=== PATIENT | female | born 1960 | race Caucasian/White ===

== ENCOUNTER → 2017-08-21 | Outpatient (CLI) | payer OTHER ==
--- NOTE | 2017-08-21 12:01 | REPMRS ---
Patient History The patient states she had a clinical breast exam in 12/05 Patient is postmenopausal. Family history of prostate cancer in father at age 50 or over and colorectal cancer in maternal aunt at age 50 or over. Digital Woman Screen Mammo: August 21, 2017 - Exam #: [id number] Bilateral CC and MLO view(s) were taken. Technologist: Mirela Cherry, Technologist Prior study comparison: December 11, 2014, digital woman screen mammo performed at [facility]. November 22, 2012, digital woman screen mammo performed at [facility]. December 01, 2010, bilateral bilat screen digital mammo performed at [facility]. FINDINGS: There are scattered fibroglandular densities. There has been no change in the appearance of the mammogram from the prior studies. There is a mild amount of scattered fibroglandular density which is fairly symmetric. There is no interval development of dominant mass, architectural distortion, or clustered microcalcification suggestive of malignancy. ASSESSMENT: BI-RADS/ACR category 1 mammogram. Negative. Recommendation Routine screening mammogram in 1 year (for women over age 40). This mammogram was interpreted with the aid of an FDA-approved computer-aided dectection system. Electronically Signed By: Efrain Hassan MD 08/21/17 1200
== END ==
LOC: M WHC 11:24
PROVIDERS: ATTEND Family Medicine
DX: Z12.31 Encounter for screening mammogram for malignant neoplasm of breast (principal)

== ENCOUNTER → 2019-02-27 | Outpatient (CLI) | payer OTHER ==
--- NOTE | 2019-02-27 16:00 | REPMRS ---
Patient History The patient states she has not had a clinical breast exam in over a year. Patient is postmenopausal. Family history of prostate cancer at age 50 or over in father, colorectal cancer at age 50 or over in maternal aunt. Digital Woman Screen Mammo: February 27, 2019 - Exam #: [id number] Bilateral CC and MLO view(s) were taken. Technologist: Kim Thompson Technologist Prior study comparison: August 21, 2017, digital woman screen mammo performed at [facility]. December 11, 2014, digital woman screen mammo performed at [facility]. November 22, 2012, digital woman screen mammo performed at [facility]. FINDINGS: There are scattered fibroglandular densities. There has been no change in the appearance of the mammogram from the prior studies. There is a mild amount of scattered fibroglandular density which is fairly symmetric. There is no interval development of dominant mass, architectural distortion, or clustered microcalcification suggestive of malignancy. Assessment: BI-RADS/ACR category 1 mammogram. Negative Mammogram. Recommendation Routine screening mammogram of both breasts in 1 year (for women over age 40). This patient's Lifetime Breast Cancer RIsk is estimated at 10.0 %. This mammogram was interpreted with the aid of an FDA-approved computer-aided dectection system. Electronically Signed By: Efrain Hassan MD 02/27/19 1600
== END ==
LOC: M WHC 12:50
PROVIDERS: ATTEND Family Medicine
DX: Z12.31 Encounter for screening mammogram for malignant neoplasm of breast (principal); Z78.0 Asymptomatic menopausal state; Z80.42 Family history of malignant neoplasm of prostate

== ENCOUNTER → 2021-06-03 | Outpatient (CLI) | payer BC ==
--- NOTE | 2021-06-03 16:24 | REPMRS ---
Patient History The patient states she had a clinical breast exam in November 2020. Family history of prostate cancer at age 50 or over in father, colorectal cancer at age 50 or over in maternal aunt. Patient states no breast complaints today. Patient has signed MRS History Sheet. Digital Woman Screen Mammo: June 03, 2021 - Exam #: [id number] Bilateral CC and MLO view(s) were taken. Technologist: Malina Villareal, Technologist Prior study comparison: February 27, 2019, bilateral digital woman screen mammo performed at [facility]. August 21, 2017, digital woman screen mammo performed at [facility]. FINDINGS: There are scattered fibroglandular densities. Screening. Digital screening (2D) mammography was performed bilaterally in the CC and MLO projections. Additionally, breast tomosynthesis (3D mammography) was performed bilaterally in the CC and MLO projections. Todays exam was compared to the prior exam/exams.There are no prior DBT images for comparison. By history, the patient has no complaints of a palpable breast abnormality or other significant breast complaints. The breasts are unchanged in size and shape. There are no liza-soft tissue densities or spiculated masses. There is no internal architectural distortion. Once again, stable benign appearing calcifications are seen.There are no suspicious liza-calcific clusters. Skin thickening or nipple retraction is not present. IMPRESSION: BI-RADS Category 2- Benign Findings. There is no evidence of malignant alteration of the breasts. Followup examination recommended in one year. The Volpara volumetric breast density category is B, there are scattered areas of fibroglandular densities. This mammogram was [facility],an FDA approved computer aided detection system for mammography. The lifetime Tyrer-Cuzick score is 9.4 % Negative x-ray reports should not delay surgical consultation if a dominant or clinically suspicious mass is present. Not all breast cancers can be identified by mammography. Therefore, we recommend that you continue to perform regular breast self-examination and physical examination and then promptly contact your physician of any concerns or changes. Adenosis and dense breasts may obscure an underlying neoplasm. Assessment: BI-RADS/ACR category 2 mammogram. Benign Findings. Recommendation Routine screening mammogram of both breasts in 1 year. Electronically Signed By: Ayden Ferreira DO 06/03/21 [id number]
== END ==
LOC: M WHC 15:00
PROVIDERS: ATTEND Family Medicine
DX: Z12.31 Encounter for screening mammogram for malignant neoplasm of breast (principal)

== ENCOUNTER → 2021-11-17 | Outpatient (CLI) | payer OTHER ==
--- NOTE | 2021-11-17 14:32 | REP ---
INDICATION: M95.0 POST MENOSAUSAL BLEEDING. COMPARISON: None. TECHNIQUE: Transvesical and transvaginal scanning FINDINGS: The uterus measures 8.1 x 4.6 x 5.4 cm. In the posterior uterine body to the left of the midline there is a 5.5 x 4.4 x 4.6 cm size complex appearing mass. In the uterine body on the right there is a 1 cm sized hypoechoic nodule. The endometrial echo complex is abnormally thickened measuring 17 mm. It is heterogenous in appearance. Neither ovary was visualized Urinary bladder measures 11 x 6 x 9 cm. IMPRESSION: 1. Uterine mass and nodule as described above possibly secondary to myomatous change. Since there are no priors comparison follow-up with MRI is suggested. 2. Abnormal endometrial echo complex as described above. Neoplastic change cannot be ruled out. 3. Nonvisualization of the ovaries. <Electronically signed by Ayden Ferreira > 11/17/21 [id number]
== END ==
LOC: M RAD 13:09
PROVIDERS: ATTEND Family Medicine
DX: N85.8 Other specified noninflammatory disorders of uterus (principal); N95.0 Postmenopausal bleeding

== ENCOUNTER → 2021-12-09 | Outpatient (CLI) | payer OTHER | LOC: M PLARAD 07:39 | PROVIDERS: ATTEND Family Medicine | DX: D39.0 Neoplasm of uncertain behavior of uterus (principal) ==

== ENCOUNTER → 2021-12-31 | Outpatient (CLI) | payer OTHER | LOC: M LABSMTC 09:29 | PROVIDERS: ATTEND Anesthesiology | DX: Z01.812 Encounter for preprocedural laboratory examination (principal); Z20.822 Contact with and (suspected) exposure to COVID-19 ==

== ENCOUNTER 2022-01-05 10:14 | Day surgery (SDC) | payer OTHER ==
[~2022-01-05] VITALS: Ht 160 cm; Wt 93.0 kg
[~2022-01-05 10:14] MED LIST: CETI10CH PO; DOXY-350 PO; FAMO40TA3 PO; FLON1SPR; LR 1,000 ML IV ONE; SING10TA32 PO; SYNT25TA PO
[2022-01-05] MEDS ORDERED: SCOPOLAMINE 1MG TRANSDERMAL PATCH As Ordered ONE (11:59)
[2022-01-05] MEDS ORDERED: SCOPOLAMINE 1MG TRANSDERMAL PATCH TOP ONE (12:00)
[2022-01-05] MEDS ORDERED: METOCLOPRAMIDE INJ 10MG/2ML VIAL (J2765 PER 1) As Ordered ONE (12:16)
[2022-01-05] MEDS ORDERED: fentaNYL 100 MCG/2 ML INJECTION As Ordered ONE (12:16)
[2022-01-05] MEDS ORDERED: ACETAMINOPHEN 1000MG 100ML IV BTL (OFIRMEV) (J0131 PER 10MG) As Ordered ONE (12:16)
[2022-01-05] MEDS ORDERED: KETOROLAC 60MG 2ML VIAL As Ordered ONE (12:16)
[2022-01-05] MEDS ORDERED: propofoL 200 MG/20 ML VIAL As Ordered ONE (12:16)
[2022-01-05] MEDS ORDERED: ONDANSETRON 4MG/2ML VIAL As Ordered ONE (12:16)
[2022-01-05] MEDS ORDERED: LIDOCAINE 2% 100MG/5ML SDV (FOR ANES.) As Ordered ONE (12:16)
[2022-01-05] MEDS ORDERED: MIDAZOLAM INJ 2MG/2ML VIAL (J2250 PER 1MG) As Ordered ONE (12:16)
[2022-01-05] MEDS ORDERED: dexameTHASONE 4 MG/ML 1ML VIAL (J1100 PER 1MG) As Ordered ONE (12:16)
[2022-01-05] MEDS ORDERED: fentaNYL 100 MCG/2 ML INJECTION IV PRN (12:55)
[2022-01-05] MEDS ORDERED: LR 1,000 ML IV SCH ×2 (12:55→13:00)
[2022-01-05] MEDS ORDERED: ONDANSETRON 4MG/2ML VIAL IV PRN (12:55)
[2022-01-05] MEDS ORDERED: oxyCODONE 5MG TAB PO PRN (12:55)
[2022-01-05 14:00] VITALS: BP 158/88
== END 2022-01-05 14:10 | disposition home or self-care (01) ==
LOC: M SDC 10:14
PROVIDERS: ATTEND Obstetrics & Gynecology
DX: N95.0 Postmenopausal bleeding (principal); N84.0 Polyp of corpus uteri; N85.00 Endometrial hyperplasia, unspecified; E03.9 Hypothyroidism, unspecified; Z79.899 Other long term (current) drug therapy; K21.9 Gastro-esophageal reflux disease without esophagitis
CPT/HCPCS: 58558; 88305; J0131; J1100; J1885; J2250; J2405; J2765; J3010

== ENCOUNTER → 2022-10-16 | Outpatient (CLI) | payer OTHER ==
[~2022-10-16] MED LIST changes: -DOXY-350 PO; +DOXY-444 PO; -LR 1,000 ML IV ONE
== END ==
LOC: M WHC 10:27
PROVIDERS: ATTEND Family Medicine
DX: Z12.31 Encounter for screening mammogram for malignant neoplasm of breast (principal)

== ENCOUNTER → 2023-06-20 | Outpatient (CLI) | payer OTHER ==
[~2023-06-20] MED LIST changes: +MONT-5 PO; +PROHANCE 279.3MG/ML 15ML VIAL ONE; +PROHANCE 279.3MG/ML 5ML VIAL ONE; -SING10TA32 PO
== END ==
LOC: M PLAIMG 08:39
PROVIDERS: ATTEND Family Medicine
DX: M25.572 Pain in left ankle and joints of left foot (principal)
CPT/HCPCS: 73723; A9576

== ENCOUNTER 2023-10-19 07:48 | Day surgery (SDC) | payer OTHER ==
[~2023-10-19] VITALS: Ht 160 cm; Wt 97.0 kg
[~2023-10-19 07:48] MED LIST changes: -PROHANCE 279.3MG/ML 15ML VIAL ONE; -PROHANCE 279.3MG/ML 5ML VIAL ONE
[2023-10-19] MEDS ORDERED: propofoL 200 MG/20 ML VIAL As Ordered ONE ×2 (09:27→09:38)
[2023-10-19 09:45] VITALS: TEMP 97
[2023-10-19 10:04] VITALS: BP 139/92; O2SAT 99
== END 2023-10-19 10:17 | disposition home or self-care (01) ==
LOC: M OPP 07:48
PROVIDERS: ATTEND Internal Medicine Gastroenterology
DX: Z12.11 Encounter for screening for malignant neoplasm of colon (principal); Z80.0 Family history of malignant neoplasm of digestive organs; Z79.1 Long term (current) use of non-steroidal anti-inflammatories (NSAID); Z79.890 Hormone replacement therapy; Z79.899 Other long term (current) drug therapy; Z88.1 Allergy status to other antibiotic agents; Z88.2 Allergy status to sulfonamides; Z91.040 Latex allergy status

== ENCOUNTER → 2024-08-29 | Outpatient (CLI) | payer OTHER ==
[~2024-08-29] MED LIST changes: +DOXY-440 PO; -DOXY-444 PO
== END ==
LOC: M WHC 09:57
PROVIDERS: ATTEND Nurse Practitioner Family
DX: Z12.31 Encounter for screening mammogram for malignant neoplasm of breast (principal)